=== PATIENT | female | born 1980 | race African-American/Black ===

== ENCOUNTER 2016-12-08 10:17 | Emergency (ER) | payer BC ==
--- NOTE | 2016-12-08 10:35 | ER Document Report ---
ED Medical Screen (RME) - General Chief Complaint: High Blood Pressure Stated Complaint: BLOOD PRESSURE PROBLEMS Time seen by provider: 10:33 Notes: Patient states she has been having intermittent episodes of elevated blood pressure, usually associated with a headache. Has never been on any medications or to diagnosed with high blood pressure. States she started a new job about 2 weeks ago when she's been having swelling to her feet since she started. She works 12 hour shifts, standing on her feet. Denies chest pain or shortness of breath, denies any cardiac history. States she was seen 2 days ago at [facility] in [place] for feet pain. Findings were normal. I have greeted and performed a rapid initial assessment of this patient. A comprehensive ED assessment and evaluation of the patient, analysis of test results and completion of the medical decision making process will be conducted by additional ED providers. TRAVEL OUTSIDE OF THE [place] IN LAST 30 DAYS: No - Related Data Allergies/Adverse Reactions: No Known Allergies Allergy (Verified 12/08/16 10:31) Past Medical History Neurological Medical History: Reports: Hx Migraine - Immunizations Hx Diphtheria, Pertussis, Tetanus Vaccination: Yes Physical Exam - Vital signs Vitals: Temp Pulse Resp BP Pulse Ox 97.9 F 73 16 129/80 H 98 12/08/16 10:22 12/08/16 10:22 12/08/16 10:22 12/08/16 10:22 12/08/16 10:22 - Cardiovascular Rhythm: Regular Heart sounds: Normal auscultation Course - Vital Signs Vital signs: Temp Pulse Resp BP Pulse Ox 97.9 F 73 16 129/80 H 98 12/08/16 10:22 12/08/16 10:22 12/08/16 10:22 12/08/16 10:22 12/08/16 10:22
--- NOTE | 2016-12-08 11:57 | ER Document Report ---
ED General - General Chief Complaint: High Blood Pressure Stated Complaint: BLOOD PRESSURE PROBLEMS Time seen by provider: 11:52 Mode of Arrival: Ambulatory Information source: Patient Notes: This is a pleasant 36-year-old female with a history of an elevated blood pressure in the past who presents to the emergency room with intermittent elevated blood pressure, swelling of her lower legs, pain in the feet especially after work. 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 She states when she gets off work, her feet ache and her legs swell. Medicines: None No known drug allergies Social: Cigarettes 2-3 packs a week Primary care physician: None TRAVEL OUTSIDE OF THE [place] IN LAST 30 DAYS: No - HPI Onset: Last week Onset/Duration: Gradual Quality of pain: Dull Severity: Moderate Pain Level: 2 Associated symptoms: denies: Chills, Fever, Shortness of breath Exacerbated by: Other - Standing for long periods Relieved by: Denies Similar symptoms previously: Yes Recently seen / treated by doctor: No - Related Data Allergies/Adverse Reactions: No Known Allergies Allergy (Verified 12/08/16 10:31) Past Medical History - General Information source: Patient - Social History Smoking Status: Current Every Day Smoker Cigarette use (# per day): Yes - 2-3 packs a week Chew tobacco use (# tins/day): No Frequency of alcohol use: None Drug Abuse: None Lives with: Family Family History: Hypertension Patient has suicidal ideation: No Patient has homicidal ideation: No - Medical History Medical History: Negative Neurological Medical History: Reports: Hx Migraine Renal/ Medical History: Denies: Hx Peritoneal Dialysis Surgical Hx: Negative - Immunizations Hx Diphtheria, Pertussis, Tetanus Vaccination: Yes Review of Systems - Review of Systems Constitutional: denies: Chills, Fever EENT: No symptoms reported Cardiovascular: No symptoms reported Respiratory: No symptoms reported Gastrointestinal: No symptoms reported Genitourinary: No symptoms reported Female Genitourinary: No symptoms reported Musculoskeletal: See HPI Skin: No symptoms reported Hematologic/Lymphatic: No symptoms reported Neurological/Psychological: No symptoms reported Physical Exam - Vital signs Vitals: Temp Pulse Resp BP Pulse Ox 97.9 F 73 16 129/80 H 98 12/08/16 10:22 12/08/16 10:22 12/08/16 10:22 12/08/16 10:22 12/08/16 10:22 Notes: Physical exam: GENERAL: 36-year-old female, lying in stretcher, no acute distress. Patient is morbidly obese. HEAD: Atraumatic, normocephalic. EYES: Pupils equal round and reactive to light, extraocular movements intact, sclera anicteric, conjunctiva are normal. ENT: TMs normal, nares patent, oropharynx clear without exudates. Moist mucous membranes. NECK: Normal range of motion, supple without lymphadenopathy or JVD. LUNGS: Breath sounds clear to auscultation bilaterally and equal. No wheezes rales or rhonchi. HEART: Regular rate and rhythm without murmurs, rubs or gallops. ABDOMEN: Soft, normoactive bowel sounds. No tenderness to palpation. No guarding, no rebound. No masses appreciated. EXTREMITIES: Normal range of motion, no pitting or edema. No clubbing or cyanosis. NEUROLOGICAL: Cranial nerves II through XII grossly intact. Normal speech, normal gait. PSYCH: Normal mood, normal affect. SKIN: Warm, Dry, normal turgor, no rashes or lesions noted. Course - Re-evaluation Re-evalutation: 12/08/16 11:54 Note: The patient's blood pressure is very acceptable today (129/80). Her pulse and respirations are good and her oxygen saturation is 98%. Her physical exam is essentially unremarkable. Her symptoms seem to be worse when she had the job on the assembly line because she has to stand for 12 hours at a time. The patient is overweight and this is clearly an exacerbating factor with the lower extremity pain. I've advised her to use compression socks, and comfortable sneakers with support. I've also discussed that she should probably stop smoking and that it contributes to peripheral vascular disease. [facility]. - Vital Signs Vital signs: Temp Pulse Resp BP Pulse Ox 97.9 F 73 16 129/80 H 98 12/08/16 10:22 12/08/16 10:22 12/08/16 10:22 12/08/16 10:22 12/08/16 10:22 - Laboratory Result Diagrams: 12/08/16 12:00 12/08/16 12:00 Laboratory results interpreted by me: 12/08/16 12:00 Hgb 11.6 L Hct 35.7 L MCH 26.4 L RDW 14.4 H Discharge - Discharge Clinical Impression: pre hypertension Condition: Stable Disposition: HOME, SELF-CARE Additional Instructions: Recommendations: Follow-up with the [facility]. I recommend using compression socks up above the calves which will help with the swelling. Take ibuprofen: 400 mg every 6 hours for foot pain. If he had continued foot pain, you could follow-up with a finish cleaner. Regarding Cigarette Smoking: There are multiple personal reasons to want to quit smoking These reasons can inspire you to stop smoking for good. Here are just a few reasons to quit today : Your Health and Appearance: Your chances of cancer, heart attack, stroke, cataracts and other diseases will go down. You will cough less and breath better. You will experience less respiratory infections. Your skin may look healthier, and you may look younger. Your teeth and fingernails will not be stained. Your Loved Ones: You children will be healthier (second hand smoke is dangerous to babies during , infants and children). women who breath in secondhand smoke over time are more likely to have miscarriage, have young babies from Sudden Syndrome, have babies that get sick more often. Children who breathe in secondhand smoke over time are more likely to have wheezing, more severe asthma attacks, pneumonia. There are resources to help you stop smokin. Call for Free Help: 2-754-Kxzw-Now (627 005-9429). or in slovak: 5-775- VELMA-YA (971-877-4229). 2. Sign up for free texts: SmokefreeTXT: [place] [address], answer a few questions and you'll start receiving messages. 3. Visit the CDC website: www.cdc.gov/tobacco/campaign/tips/quit-smoking/ quitting-resources.html 4. Discusse further methods with your primary care physician. Referrals: [facility] [Provider Group] - Follow up as needed (This is the number for primary care clinic) NAYELI GAUTAM DPM [ACTIVE STAFF] - Follow up as needed (This is a number for the but tightest if you have continued foot pain.)
[2016-12-08 12:31] LABS: ABSOLUTE EOSINOPHILS # (AUTO) 0.1 10^3/uL (0.0-0.6); ABSOLUTE LYMPHOCYTES (AUTO) 1.7 10^3/uL (0.5-4.7); ABSOLUTE MONOCYTES (AUTO) 0.5 10^3/uL (0.1-1.4); ABSOLUTE NEUT (AUTO) 5.4 10^3/uL (1.7-8.2); BASOPHILS % (AUTO) 0.6 % (0-2); EOSINOPHILS % (AUTO) 1.4 % (0-6); HEMATOCRIT 35.7 % (36.0-47.0); HEMOGLOBIN 11.6 g/dL (12.0-15.5); HGB HCT DIFFERENCE -0.9; LYMPHOCYTES % (AUTO) 21.4 % (13-45); MEAN CORPUSCULAR HEMOGLOBIN 26.4 pg (27.0-33.4); MEAN CORPUSCULAR HGB CONC 32.6 g/dL (32.0-36.0); MEAN CORPUSCULAR VOLUME 81 fl (80-97); MONOCYTES % (AUTO) 6.5 % (3-13); RED BLOOD COUNT 4.39 10^6/uL (3.72-5.28); RED CELL DISTRIBUTION WIDTH 14.4 % (11.5-14.0); SEGMENTED NEUTROPHILS % (AUTO) 70.1 % (42-78); WHITE BLOOD COUNT 7.7 10^3/uL (4.0-10.5)
[2016-12-08 12:51] LABS: ALANINE AMINOTRANSFERASE 27 U/L (9-52); ALKALINE PHOSPHATASE 98 U/L (38-126); ANION GAP 10 (5-19); ASPARTATE AMINO TRANSFERASE 15 U/L (14-36); BILIRUBIN,TOTAL 0.4 mg/dL (0.2-1.3); BLOOD UREA NITROGEN 12 mg/dL (7-20); CALCIUM 9.5 mg/dL (8.4-10.2); CARBON DIOXIDE 27 mmol/L (22-30); CHLORIDE 107 mmol/L (98-107); CREATININE RESULT 0.75 mg/dL (0.52-1.25); GLUCOSE 93 mg/dL (75-110); POTASSIUM 4.1 mmol/L (3.6-5.0); SODIUM 143.5 mmol/L (137-145)
[2016-12-08 14:48] VITALS: BP 128/76
== END 2016-12-08 14:56 | disposition home or self-care (01) ==
LOC: ER 10:17
DX: R03.0 Elevated blood-pressure reading, without diagnosis of hypertension (principal); F17.210 Nicotine dependence, cigarettes, uncomplicated
CPT/HCPCS: 36415; 80053; 85025; 99283

== ENCOUNTER 2017-01-17 04:05 | Emergency (ER) | payer BC ==
[2017-01-17] MEDS ORDERED: KETOROLAC TROMETHAMINE 60 MG/2 ML SDV IM ONE (04:43)
[2017-01-17] MEDS ORDERED: PROMETHAZINE HCL INJ 25 MG/1 ML VIAL IM ONE (04:43)
[2017-01-17] MEDS ORDERED: DIPHENHYDRAMINE HCL 50 MG/ML VIAL IM ONE (04:44)
[2017-01-17] MEDS ORDERED: PROMETHAZINE HCL INJ 25 MG/1 ML VIAL ONE (04:54)
--- NOTE | 2017-01-17 04:54 | ER Document Report ---
ED Headache - General Mode of Arrival: Ambulatory Information source: Patient TRAVEL OUTSIDE OF THE [place] IN LAST 30 DAYS: No - HPI Patient complains to provider of: Headache Patient reports: Frequent migraines, Hx chronic headaches Onset: Other - see HPI note Associated symptoms: Neck pain Exacerbated by: Light, Position Similar symptoms previously: Yes Recently seen / treated by doctor: No - General Chief Complaint: Headache Stated Complaint: HEADACHE,VOMITING Notes: Patient is a 36 year old female presenting to the ED for headache. Patient states she has a history of chronic headaches. Patient has seen a local neurologist who has diagnosed her with migraines. Patient states she started taking some medications that were prescribed by this neurologist but has ran out of them and has not been back in to see this physician. Patient states this headache has been causing her to vomit some. Patient's pain is located in her temples and forehead. Patient states she is getting headaches 2-3 times per week. Patient states she also has some numbness in her arms and fingers bilaterally; patient does repetitive movements at work. Patient also has some post nasal drip. Patient denies being , having facial pain, fever, or cough. Patient denies any family history of aneurysms. Patient has no known allergies. (STERLING ALCANTARA) - Related Data Allergies/Adverse Reactions: No Known Allergies Allergy (Verified 01/17/17 04:06) Past Medical History - General Information source: Patient - Social History Smoking Status: Current Every Day Smoker Frequency of alcohol use: None Drug Abuse: None Family History: Reviewed & Not Pertinent, Hypertension Patient has suicidal ideation: No Patient has homicidal ideation: No Neurological Medical History: Reports: Hx Migraine Surgical Hx: Negative - Immunizations Hx Diphtheria, Pertussis, Tetanus Vaccination: Yes Review of Systems - Review of Systems Constitutional: No symptoms reported EENT: No symptoms reported Cardiovascular: No symptoms reported Respiratory: No symptoms reported Gastrointestinal: No symptoms reported Genitourinary: No symptoms reported Female Genitourinary: No symptoms reported Musculoskeletal: No symptoms reported Skin: No symptoms reported Hematologic/Lymphatic: No symptoms reported Neurological/Psychological: See HPI, Headaches -: Yes All other systems reviewed and negative Physical Exam - Vital signs Interpretation: Normal - General General appearance: Appears well, Alert In distress: Mild - HEENT Head: Normocephalic, Atraumatic Eyes: Normal Pupils: PERRL Mucous membranes: Moist - Respiratory Respiratory status: No respiratory distress Chest status: Nontender Breath sounds: Normal Chest palpation: Normal - Cardiovascular Rhythm: Regular Heart sounds: Normal auscultation Murmur: No - Abdominal Inspection: Normal Distension: No distension Bowel sounds: Normal Tenderness: Nontender Organomegaly: No organomegaly - Back Back: Normal, Nontender - Extremities General upper extremity: Normal inspection, Normal ROM, Normal strength General lower extremity: Normal inspection, Normal ROM, Normal strength, Other - good pulses and perfusion. No: Edema - Neurological Neuro grossly intact: Yes Cognition: Normal Orientation: AAOx4 Colleen Coma Scale Eye Opening: Spontaneous Colleen Coma Scale Verbal: Oriented [place]leen Coma Scale Motor: Obeys Commands [place] Coma Scale Total: 15 Speech: Normal Sensory: Normal - Psychological Associated symptoms: Normal affect, Normal mood - Skin Skin Temperature: Warm Skin Moisture: Dry Skin Color: Normal - Vital signs Vitals: Temp Pulse Resp BP Pulse Ox 98.5 F 73 20 124/76 98 01/17/17 04:11 01/17/17 04:11 01/17/17 04:11 01/17/17 04:11 01/17/17 04:11 Course - Re-evaluation Re-evalutation: 01/17/17 06:22 Patient presents spell with chief plain a headache. She has chronic long- standing headaches which she sometimes gets 2 or 3 times a week they have been described as tension headaches in the past previous records have said that she has trigeminal neuralgia she denies currently having that. She has seen a local neurologist many years ago but has not recently seen them. This particular headache was gradual onset not the worse of her life associated with frontal throbbing no blurred vision double vision strokelike symptoms trauma neck pain stiffness fever or chills numbness tingling weakness or neurological deficits. No history of stroke blood pressure is stable no family history of aneurysm on physical examination she is well-appearing nontoxic with no acute nuchal rigidity or neurological deficits. Given Toradol Phenergan and Benadryl. Reassessed patient sleepy easily arousable headache is resolved. Going to discharge her to follow-up with Dr. Rudy smith call the office today for an appointment to be seen in 3-5 days discussed with her the fact that she is having these 2 and 3 times a week that she can be placed on a medication that she continues to control these. She's had CAT scans in the past I do not feel this is an acute aneurysm nor does she want an additional CAT scan. She verbalizes understanding of this can follow up with Dr. Rudy smith and discussed reasons for ED return sooner (LISA WALSH) - Vital Signs Vital signs: Temp Pulse Resp BP Pulse Ox 97.9 F 57 L 14 122/82 99 01/17/17 05:38 01/17/17 05:38 01/17/17 05:38 01/17/17 05:38 01/17/17 05:38 Discharge - Discharge Clinical Impression: acute cephalgia Condition: Stable Disposition: HOME, SELF-CARE Additional Instructions: Headache The physician does not feel that the headache you are experiencing has a serious underlying cause. Most headaches are due to emotional stress, with resultant muscle tension (tension headache). Occasionally, headaches are secondary to changes in the blood vessels of the scalp (vascular headache and migraine headache). Sometimes, a headache is the first symptom of another developing illness, such as a viral infection. You have no evidence of stroke, bleeding, meningitis, or other serious cause of your headache. The treatment of headaches varies with the severity and cause of the pain. Not all headaches need pain shots. In fact, there is evidence that using narcotics for headaches may make them worse in the long run. The physician will determine the therapy that's in your best interest. If you develop a fever, if the headache is different from any you've previously experienced, or if the headache progressively worsens, then call your physician at once or go to the emergency room. Forms: Return to Work Referrals: FRANCK TREVIÑO MD [ACTIVE STAFF] - Follow up in 3-5 days (All for an appointment to be seen in follow-up in 3-5 days return for increasing worsening or new symptoms) Scribe Attestation: 01/17/17 06:23 I personally performed the services described in the documentation reviewed the documentation recorded by my scribe in my presence and it accurately and completely records my words and actions (LISA WALSH) Scribe Documentation - Scribe Written by Scrberlin:: Sterling Alcantara 01/17/17 05:00 acting as scribe for :: Moncho
[2017-01-17 05:40] VITALS: BP 122/82
--- NOTE | 2017-01-17 08:31 | EKG REPORT ---
SEVERITY:- NORMAL ECG - SINUS RHYTHM : Confirmed by: Hilda Mcdermott MD 17-Jan-2017 08:30:18
== END 2017-01-17 05:41 | disposition home or self-care (01) ==
LOC: ER 04:05
DX: R51 Headache (principal); R11.10 Vomiting, unspecified; F17.200 Nicotine dependence, unspecified, uncomplicated
CPT/HCPCS: 93005; 99283; 96372; 93010; J1200; J1885; J2550

== ENCOUNTER 2017-01-25 03:48 | Emergency (ER) | payer BC ==
[2017-01-25] MEDS ORDERED: KETOROLAC TROMETHAMINE INJ/PF 30 MG/1 ML SDV IV ONE (05:07)
[2017-01-25] MEDS ORDERED: DIPHENHYDRAMINE HCL 50 MG/ML VIAL IV ONE (05:07)
[2017-01-25] MEDS ORDERED: METOCLOPRAMIDE HCL INJ/PF 10 MG/2 ML SDV IV ONE (05:07)
[2017-01-25] MEDS ORDERED: NORMAL SALINE 1000 ML 1,000 ML IV ONE (05:08)
[2017-01-25] MEDS ORDERED: METHOCARBAMOL INJ/PF 1000 MG/10 ML SDV IV ONE (05:08)
--- NOTE | 2017-01-25 05:10 | ER Document Report ---
ED Headache - General Chief Complaint: Headache Stated Complaint: HEADACHE Time seen by provider: 05:05 Notes: Patient is a 36-year-old female that comes emergency department for chief complaint of a headache, she states she has a migraine with pain started behind her right eye gradually a couple of days ago, she states that she vomited twice earlier, she also has some pain along the right side of her shoulder in the back. She denies any fever. She denies any visual changes. She denies any focal numbness or weakness. Patient denies injury, states that she gets headaches 2-3 times a week like this, states that she has been seen and had imaging by neurology in the past, states that she has not been able to follow- up with her neurology referral yet. He takes Tylenol for pain at home. She denies any other medical history. TRAVEL OUTSIDE OF THE [place] IN LAST 30 DAYS: No - Related Data Allergies/Adverse Reactions: No Known Allergies Allergy (Verified 01/17/17 04:06) Past Medical History - General Information source: Patient - Social History Smoking Status: Never Smoker Frequency of alcohol use: None Drug Abuse: None Lives with: Family Family History: Reviewed & Not Pertinent, Hypertension Patient has suicidal ideation: No Patient has homicidal ideation: No Neurological Medical History: Reports: Hx Migraine Renal/ Medical History: Denies: Hx Peritoneal Dialysis - Immunizations Hx Diphtheria, Pertussis, Tetanus Vaccination: Yes Review of Systems - Review of Systems Constitutional: No symptoms reported EENT: No symptoms reported Cardiovascular: No symptoms reported Respiratory: No symptoms reported Gastrointestinal: See HPI Genitourinary: No symptoms reported Female Genitourinary: No symptoms reported Musculoskeletal: No symptoms reported Skin: No symptoms reported Hematologic/Lymphatic: No symptoms reported Neurological/Psychological: See HPI Physical Exam - Vital signs Vitals: Temp Pulse Resp BP Pulse Ox 98.4 F 63 16 131/90 H 98 01/25/17 03:55 01/25/17 03:55 01/25/17 03:55 01/25/17 03:55 01/25/17 03:55 Interpretation: Normal - General General appearance: Alert - Patient squinting her eyes but does not appear to be in any severe distress, she is alert and awake In distress: None - HEENT Head: Normocephalic, Atraumatic Eyes: Normal Conjunctiva: Normal Extraocular movements intact: Yes Eyelashes: Normal Pupils: PERRL - Mild photophobia but equal and reactive Sinus: Normal Nasal: Normal Mouth/Lips: Normal Mucous membranes: Normal Pharynx: Normal Neck: Normal. No: Meningismus - Respiratory Respiratory status: No respiratory distress Chest status: Nontender Breath sounds: Normal. No: Decreased air movement, Wheezing Chest palpation: Normal - Cardiovascular Rhythm: Regular. No: Tachycardia Heart sounds: Normal auscultation, S1 appreciated, S2 appreciated Murmur: No - Abdominal Inspection: Normal Distension: No distension Bowel sounds: Normal Tenderness: Nontender Organomegaly: No organomegaly - Back Back: Nontender, Tender - Very mild left-sided trapezius and paracervical tenderness, normal range of motion, no nuchal rigidity, normal midline exam, normal upper and lower extremity range of motion, normal distal neurovascular exam - Extremities General upper extremity: Normal inspection, Nontender, Normal color, Normal ROM , Normal temperature General lower extremity: Normal inspection, Nontender, Normal color, Normal ROM , Normal temperature, Normal weight bearing. No: Danita's sign - Neurological Neuro grossly intact: Yes Cognition: Normal Orientation: AAOx4 [place] Coma Scale Eye Opening: Spontaneous [place] Coma Scale Verbal: Oriented Colleen Coma Scale Motor: Obeys Commands Colleen Coma Scale Total: 15 Speech: Normal Cranial nerves: Normal Cerebellar coordination: Normal Motor strength normal: LUE, RUE, LLE, RLE Additional motor exam normals: Equal nail maker Sensory: Normal - Psychological Associated symptoms: Normal affect, Normal mood - Skin Skin Temperature: Warm Skin Moisture: Dry Skin Color: Normal Course - Re-evaluation Re-evalutation: On reevaluation patient sleeping soundly, easily aroused, states she feels much better. Patient will be provided with Fioricet, patient has a follow-up with neurology are scheduled for Sunday, patient reporting that her headache is her typical migraine, very low suspicion of intracranial hemorrhage or any other acute abnormality. Discussed return precautions, patient states understanding and agreement. - Vital Signs Vital signs: Temp Pulse Resp BP Pulse Ox 98.4 F 75 18 149/85 H 98 01/25/17 03:55 01/25/17 07:04 01/25/17 07:04 01/25/17 07:04 01/25/17 03:55 Discharge - Discharge Clinical Impression: Headache Qualifiers: Headache type: unspecified Headache chronicity pattern: acute headache Intractability: not intractable Qualified Code(s): R51 - Headache Condition: Stable Disposition: HOME, SELF-CARE Additional Instructions: Your symptoms and response to treatment are consistent with a migraine. Take the medication provided if needed, follow-up with neurology on Sunday as planned for additional management. Return to the emergency department for any return or new concerning symptoms. Prescriptions: Butalb/Acetaminophen/Caffeine [Fioricet (50-325-40 mg) Tablet] 1 tab PO Q4HP PRN #30 tab PRN Reason: Forms: Return to Work
[2017-01-25 07:05] VITALS: BP 149/85
== END 2017-01-25 07:33 | disposition home or self-care (01) ==
LOC: ER 03:48
DX: R51 Headache (principal)
CPT/HCPCS: J1200; J2800; J1885; J2765; J7030

== ENCOUNTER 2017-02-12 04:29 | Emergency (ER) | payer BC ==
--- NOTE | 2017-02-12 06:06 | ER Document Report ---
ED Headache - General Mode of Arrival: Ambulatory Information source: Patient TRAVEL OUTSIDE OF THE [place] IN LAST 30 DAYS: No - HPI Patient complains to provider of: Headache Associated symptoms: Other - See above - General Chief Complaint: Headache Stated Complaint: HEADACHE Notes: Patient is a 36-year-old female who presents to emergency department with complaints of headache onset yesterday. Patient has been to this facility twice in the last month for the same complaint. Patient has followed up with Dr. Treviño and was prescribed Topamax which she reports is not helping. Patient states that Dr. Treviño has her following up with another specialist for imaging and a sleep study. Patient states that this headache is somewhat different from her previous headaches in that the pain is in the back of her head. Patient has vomited during this headache. Patient denies passing out, fever, congestion, and dental problems. (SARATH MAK) - Related Data Allergies/Adverse Reactions: No Known Allergies Allergy (Verified 01/17/17 04:06) Past Medical History - General Information source: Patient - Social History Smoking Status: Unknown if Ever Smoked Family History: Reviewed & Not Pertinent, Hypertension Patient has suicidal ideation: No Patient has homicidal ideation: No Neurological Medical History: Reports: Hx Migraine - Immunizations Hx Diphtheria, Pertussis, Tetanus Vaccination: Yes Review of Systems - Review of Systems Constitutional: denies: Fever EENT: denies: Nose congestion, Dental problem Cardiovascular: No symptoms reported Respiratory: No symptoms reported Gastrointestinal: See HPI, Vomiting Genitourinary: No symptoms reported Female Genitourinary: No symptoms reported Musculoskeletal: No symptoms reported Skin: No symptoms reported Hematologic/Lymphatic: No symptoms reported Neurological/Psychological: See HPI, Headaches. denies: Lost consciousness -: Yes All other systems reviewed and negative Physical Exam - Vital signs Interpretation: Normal - General General appearance: Appears well, Alert - HEENT Head: Normocephalic, Atraumatic Eyes: Normal Extraocular movements intact: Yes Neck: Normal - Respiratory Respiratory status: No respiratory distress - Cardiovascular Rhythm: Regular - Extremities General upper extremity: Normal inspection General lower extremity: Normal inspection - Neurological Neuro grossly intact: Yes Cognition: Normal Orientation: AAOx4 [place] Coma Scale Eye Opening: Spontaneous [place] Coma Scale Verbal: Oriented [place] Coma Scale Motor: Obeys Commands [place] Coma Scale Total: 15 Speech: Normal - Psychological Associated symptoms: Normal affect, Normal mood - Skin Skin Temperature: Warm Skin Moisture: Dry Skin Color: Normal Course - Re-evaluation Re-evalutation: 02/12/17 06:14 Patient presents emergency per chief plain a headache. Gradual onset yesterday afternoon. Exactly the same in character quality frequency and duration is previous episodes. I saw her a few weeks ago and encouraged her to follow up with her neurologist. She's also been seen and additional times since then. Her neurologist saw her in place her on a new medication which she states is not working. He has a sleep study ordered and she said some additional testing. She said that this is not the worst headache of her life not associated with fever stiff neck chest pain shortness of breath mild vomiting and photophobia no altered mental status or history of trauma. On examination she is well- appearing nontoxic GCS of 15 pupils are rectal light bilaterally no neurological deficits no nuchal rigidity. When ahead and gave her Toradol Reglan and Benadryl. She is encouraged to call her neurologist today on him no that she's been seen in the ER twice since she seen him. Attempt to try a different medication if that was not working. She verbalized having a ride home prior to given the medication. Significant improvement with medication will DC close PCP and neurology follow-up and discuss reasons for ED return sooner (LISA WALSH) - Vital Signs Vital signs: Temp Pulse Resp BP Pulse Ox 98.2 F 76 20 117/68 98 02/12/17 06:51 02/12/17 06:51 02/12/17 06:51 02/12/17 06:51 02/12/17 06:51 Discharge - Discharge Clinical Impression: acute cephalgia Condition: Stable Disposition: HOME, SELF-CARE Instructions: Use of Diphenhydramine, Headache ([facility]), Reglan ([facility]), Toradol Injection ([facility]) Additional Instructions: Headache The physician does not feel that the headache you are experiencing has a serious underlying cause. Most headaches are due to emotional stress, with resultant muscle tension (tension headache). Occasionally, headaches are secondary to changes in the blood vessels of the scalp (vascular headache and migraine headache). Sometimes, a headache is the first symptom of another developing illness, such as a viral infection. You have no evidence of stroke, bleeding, meningitis, or other serious cause of your headache. The treatment of headaches varies with the severity and cause of the pain. Not all headaches need pain shots. In fact, there is evidence that using narcotics for headaches may make them worse in the long run. The physician will determine the therapy that's in your best interest. If you develop a fever, if the headache is different from any you've previously experienced, or if the headache progressively worsens, then call your physician at once or go to the emergency room. Forms: Return to Work Referrals: FRANCK TREVIÑO MD [ACTIVE STAFF] - Follow up in 3-5 days (Please contact his office today and let him know he had to come to the emergency department schedule close follow-up in the next 3-5 days FOLLOW-up with primary care physician in 2-3 days term for increasing worsening or new symptoms) Scribe Attestation: 02/12/17 06:15 I personally performed the services described in the documentation reviewed the documentation recorded by my scribe in my presence and it accurately and completely records my words and actions (LISA WALSH) Scribe Documentation - Scribe Written by Wesley:: wesley Mena, 02/12/17, 0631 acting as scribe for :: [employer]
[2017-02-12] MEDS ORDERED: KETOROLAC TROMETHAMINE 60 MG/2 ML SDV IM ONE (06:12)
[2017-02-12] MEDS ORDERED: DIPHENHYDRAMINE HCL 50 MG/ML VIAL IM ONE (06:13)
[2017-02-12] MEDS ORDERED: METOCLOPRAMIDE HCL INJ/PF 10 MG/2 ML SDV IM ONE (06:13)
[2017-02-12 06:53] VITALS: BP 117/68
== END 2017-02-12 06:50 | disposition home or self-care (01) ==
LOC: ER 04:29
DX: R51 Headache (principal); R11.10 Vomiting, unspecified
CPT/HCPCS: 99283; 96372; J1200; J1885; J2765

== ENCOUNTER 2018-02-11 05:33 | Emergency (ER) | payer BC ==
[2018-02-11] MEDS ORDERED: LIDOCAINE 2% URO-JET 5 ML KIT MM ONE (06:33)
--- NOTE | 2018-02-11 06:40 | ER Document Report ---
ED General - General Chief Complaint: Rectal Pain Stated Complaint: RECTAL PAIN Time Seen by Provider: 02/11/18 06:25 TRAVEL OUTSIDE OF THE [place] IN LAST 30 DAYS: No - HPI Patient complains to provider of: Rectal pain Notes: Patient coming for rectal pain ongoing for the last 24 hours. Patient states that very painful to sit is a very painful to walk. Patient states hard stools over the last few days. Denies a history of hemorrhoids denies any bleeding patient denies any fevers chills nausea vomiting diarrhea resting on the right lateral come aside upon my evaluation. - Related Data Allergies/Adverse Reactions: No Known Allergies Allergy (Verified 01/17/17 04:06) Past Medical History - Social History Smoking Status: Current Every Day Smoker Family History: Reviewed & Not Pertinent, Hypertension Neurological Medical History: Reports: Hx Migraine Renal/ Medical History: Denies: Hx Peritoneal Dialysis - Immunizations Hx Diphtheria, Pertussis, Tetanus Vaccination: Yes Review of Systems - Review of Systems Constitutional: No symptoms reported EENT: No symptoms reported Cardiovascular: No symptoms reported Respiratory: No symptoms reported Gastrointestinal: denies: No symptoms reported - Rectal pain Genitourinary: No symptoms reported Female Genitourinary: No symptoms reported Musculoskeletal: No symptoms reported Skin: No symptoms reported Hematologic/Lymphatic: No symptoms reported Neurological/Psychological: No symptoms reported Physical Exam - Vital signs Interpretation: Normal - General General appearance: Appears well, Alert - HEENT Head: Normocephalic, Atraumatic Eyes: Normal Pupils: PERRL - Respiratory Respiratory status: No respiratory distress Chest status: Nontender Breath sounds: Normal Chest palpation: Normal - Cardiovascular Rhythm: Regular Heart sounds: Normal auscultation Murmur: No - Abdominal Inspection: Normal Distension: No distension Bowel sounds: Normal Tenderness: Nontender Organomegaly: No organomegaly - Rectal Tenderness: Yes Hemorrhoids: External - Small hemorrhoid at the 12 o'clock position nonthrombosed - Back Back: Normal, Nontender - Extremities General upper extremity: Normal inspection, Nontender, Normal color, Normal ROM , Normal temperature General lower extremity: Normal inspection, Nontender, Normal color, Normal ROM , Normal temperature, Normal weight bearing. No: Adnita's sign - Neurological Neuro grossly intact: Yes Cognition: Normal Orientation: AAOx4 [place] Coma Scale Eye Opening: Spontaneous [place] Coma Scale Verbal: Oriented [place] Coma Scale Motor: Obeys Commands [place] Coma Scale Total: 15 Speech: Normal Motor strength normal: LUE, RUE, LLE, RLE Sensory: Normal - Psychological Associated symptoms: Normal affect, Normal mood - Skin Skin Temperature: Warm Skin Moisture: Dry Skin Color: Normal Course - Re-evaluation Re-evalutation: 02/11/18 14:55 Patient with a nonthrombosed hemorrhoid more likely causing her pain. Patient was educated about him was started on stool softeners hemorrhoid cream and lidocaine patient discharged home Discharge - Discharge Clinical Impression: Acute hemorrhoid Condition: Good Disposition: HOME, SELF-CARE Instructions: Gastroenteritis (adult) ([facility]), HC Hemorrhoid Cream ([facility]), Hemorrhoids ([facility]), Surgeon Additional Instructions: Examination today shows that you have an acute hemorrhoid. There is no signs of thrombosis or blood clot within the hemorrhoid. Please use the prescribed creams as directed. He may also try [id number] Preparation H. Please make sure you are taking a stool softener order prescribed stool softener to prevent any constipation. Follow-up with the surgeons or GI doctors as needed also recommend following up with your primary care physician for further evaluation. Prescriptions: Docusate Sodium [Colace] 100 mg PO BID #30 capsule Hydrocortisone/Pramoxine [Analpram Hc 2.5% Cream] 30 gm RC BID #1 cream.appl Lidocaine [Recticare] 30 gm TP Q6 #1 cream..g. Forms: Return to Work
== END 2018-02-11 06:48 | disposition home or self-care (01) ==
LOC: ER 05:33
DX: K64.4 Residual hemorrhoidal skin tags (principal); K62.89 Other specified diseases of anus and rectum; I10 Essential (primary) hypertension; F17.200 Nicotine dependence, unspecified, uncomplicated
CPT/HCPCS: 99283; J3490

== ENCOUNTER 2019-07-22 04:57 | Emergency (ER) | payer BC ==
[2019-07-22 05:07] VITALS: BP 127/78
[2019-07-22] MEDS ORDERED: KETOROLAC TROMETHAMINE 60 MG/2 ML SDV IM ONE (05:59)
[2019-07-22] MEDS ORDERED: CYCLOBENZAPRINE HCL 10 MG TABLET PO ONE (05:59)
--- NOTE | 2019-07-22 07:11 | RADIOLOGY REPORT (SQ) ---
Cervical spine five view on 07/22/2019 at 6:41 AM CLINICAL INDICATION: Neck pain, pain with rotating head COMPARISON: None FINDINGS: Degenerative disc disease is noted from C4 through C6. There is slight reversal of the normal cervical lordosis. Cervical spine is otherwise well aligned. There is no. Oblique imaging shows no bony foraminal narrowing. There are no fractures. No other bony abnormality is noted. IMPRESSION: No acute abnormality.
--- NOTE | 2019-07-22 07:15 | ER Document Report ---
HPI - HPI Patient complains to provider of: neck pain Time Seen by Provider: 07/22/19 05:15 Pain Level: 4 Context: Patient is a 39-year-old female presents to the emergency department for neck pain. States she has had intermittent pain for approximately 2 weeks. States approximately 2 weeks ago she picked something up heavy at work and noticed pain in her neck. Patient voices she "heard a pop." Patient voices generalized midline cervical tenderness as well as paraspinal tenderness into bilateral trapezius muscles. Patient's denying any numbness or tingling in any extremity. She is denying any urinary retention or loss of bowel or bladder. She is denying any other injuries. Patient voices her last menstrual cycle was approximately 2 weeks ago. States there is no chance she is . - REPRODUCTIVE LMP: 06/2019 Reproductive: DENIES: : Past Medical History - General Information source: Patient - Social History Smoking Status: Current Every Day Smoker Chew tobacco use (# tins/day): No Frequency of alcohol use: Occasional Drug Abuse: None Family History: Reviewed & Not Pertinent, Hypertension Patient has suicidal ideation: No Patient has homicidal ideation: No Neurological Medical History: Reports: Hx Migraine Renal/ Medical History: Denies: Hx Peritoneal Dialysis - Immunizations Hx Diphtheria, Pertussis, Tetanus Vaccination: Yes Vertical Provider Document - CONSTITUTIONAL Agree With Documented VS: Yes Notes: GENERAL: Alert, interacts well. No acute distress. HEAD: Normocephalic, atraumatic. EYES: Pupils equal, round, and reactive to light. Extraocular movements intact. ENT: Oral mucosa moist, tongue midline. NECK: Full range of motion. Supple. Trachea midline. No nuchal rigidity noted, generalized pain noted cervical midline as well as paraspinal into bilateral trapezius muscles. LUNGS: Clear to auscultation bilaterally, no wheezes, rales, or rhonchi. No respiratory distress. HEART: Regular rate and rhythm. No murmur ABDOMEN: Soft, non-tender. Non-distended. Bowel sounds present in all 4 quadrants. EXTREMITIES: Moves all 4 extremities spontaneously. No edema, normal radial and dorsalis pedis pulses bilaterally. No cyanosis. BACK: no thoracic, lumbar midline tenderness. No saddle anesthesia, normal distal neurovascular exam. NEUROLOGICAL: Alert and oriented x3. Normal speech. cranial nerves II through XII grossly intact. PSYCH: Normal affect, normal mood. SKIN: Warm, dry, normal turgor. No rashes or lesions noted. - INFECTION CONTROL TRAVEL OUTSIDE OF THE [place] IN LAST 30 DAYS: No Course - Re-evaluation Re-evalutation: Patient presents to the emergency department with what appears to be musculoskeletal neck pain. Patient does have cervical spine tenderness so imaging was ordered. Imaging negative for acute fracture. Patient was treated with Toradol in the emergency department. She was driving so Flexeril was withheld. Patient's denying any headache, rash, fever, generalized malaise, URI symptoms. Patient has no urinary retention or loss of bowel or bladder, no numbness or tingling in any extremities. Discussed close follow-up with primary care provider with close return precautions. - Vital Signs Vital signs: Temp Pulse Resp BP Pulse Ox 98.2 F 74 16 127/78 H 98 07/22/19 04:58 07/22/19 04:58 07/22/19 04:58 07/22/19 04:58 07/22/19 04:58 Discharge - Discharge Clinical Impression: Neck pain Condition: Stable Disposition: HOME, SELF-CARE Instructions: Neck Injury (Cervical Strain) ([facility]) Additional Instructions: As we discussed you have been seen and treated in the emergency department for your generalized and neck pain. I do feel as though your neck pain is muscular in nature. Your x-rays revealed no signs of abnormalities. Please take medications as prescribed and follow-up with your primary care provider in the next 12 to 24 hours. Return to the emergency room for any concerns. Prescriptions: Cyclobenzaprine HCl [Flexeril 10 mg Tablet] 10 mg PO TIDP PRN #15 tab PRN Reason: Naproxen 500 mg PO BID #20 tablet Forms: Return to Work Referrals: NAHUM SHARMA FNP [Primary Care Provider] - Follow up as needed
== END 2019-07-22 07:32 | disposition home or self-care (01) ==
LOC: ER 04:57
DX: M54.2 Cervicalgia (principal); X50.0XXA Overexertion from strenuous movement or load, initial encounter; F17.200 Nicotine dependence, unspecified, uncomplicated
CPT/HCPCS: 99283; 96374; 72050; J1885

== ENCOUNTER 2020-07-09 23:02 | Emergency (ER) | payer BC ==
--- NOTE | 2020-07-09 23:16 | ER Document Report ---
ED Medical Screen (RME) - General Chief Complaint: Headache Stated Complaint: HEADACHE Time Seen by Provider: 07/09/20 23:12 Primary Care Provider: NAHUM SHARMA FNP [Primary Care Provider] - Follow up as needed Mode of Arrival: Ambulatory Information source: Patient Notes: 40-year-old female presents to ED for complaint of headache pain stomach upset no nausea vomiting she states that she has had headaches before and she took some that the neurologist gave her. She states she took Tylenol at 6 PM and ibuprofen at 4 PM and has had no relief. She does have a history of migraines. She does smoke 6 to 7 cigarettes a day and rarely drinks alcohol. Patient is alert oriented respirations regular nonlabored speaking in full sentences. I have greeted and performed a rapid initial assessment of this patient. A comprehensive ED assessment and evaluation of the patient, analysis of test results and completion of medical decision making process will be conducted by an additional ED providers. TRAVEL OUTSIDE OF THE [place] IN LAST 30 DAYS: No - Related Data Allergies/Adverse Reactions: No Known Allergies Allergy (Verified 07/09/20 23:12) Past Medical History - Social History Frequency of alcohol use: Rare Drug Abuse: None Neurological Medical History: Reports: Hx Migraine Renal/ Medical History: Denies: Hx Peritoneal Dialysis - Immunizations Hx Diphtheria, Pertussis, Tetanus Vaccination: Yes Physical Exam - Vital signs Vitals: Temp Pulse BP Pulse Ox 98.4 F 73 136/89 H 99 07/09/20 23:08 07/09/20 23:08 07/09/20 23:08 07/09/20 23:08 Course - Vital Signs Vital signs: Temp Pulse Resp BP Pulse Ox 98.4 F 73 136/89 H 99 07/09/20 23:08 07/09/20 23:08 07/09/20 23:08 07/09/20 23:08 Doctor's Discharge - Discharge Referrals: NAHUM SHARMA FNP [Primary Care Provider] - Follow up as needed
[2020-07-10] MEDS ORDERED: KETOROLAC TROMETHAMINE INJ/PF 30 MG/1 ML SDV IV ONE (00:38)
[2020-07-10] MEDS ORDERED: NORMAL SALINE 1000 ML 1,000 ML IV ONE (00:39)
[2020-07-10] MEDS ORDERED: DIPHENHYDRAMINE HCL 50 MG/ML VIAL IV ONE (00:39)
[2020-07-10] MEDS ORDERED: METOCLOPRAMIDE HCL INJ/PF 10 MG/2 ML SDV IV ONE (00:39)
--- NOTE | 2020-07-10 00:47 | ER Document Report ---
ED Headache - General Chief Complaint: Headache Stated Complaint: HEADACHE Time Seen by Provider: 07/09/20 23:12 Primary Care Provider: FRANCK TREVIÑO MD [NO LOCAL MD] - Follow up in 3-5 days NAHUM SHARMA FNP [NURSE PRACTITIONER] - Follow up as needed Mode of Arrival: Ambulatory TRAVEL OUTSIDE OF THE [place] IN LAST 30 DAYS: No - HPI Patient complains to provider of: "Migraine" Onset: Other - 1 week Onset was: Gradual Quality of pain: Throbbing Associated symptoms: denies: Fever Notes: Patient is a 40-year-old female with a past medical history of migraines who presents with a headache. Patient states she has had this headache all week. She has tried Tylenol and ibuprofen with minimal relief. Patient states this feels like her regular headache. She used to be on a medication for migraines but she has not seen her neurologist in a while. Patient describes it as being worse with light. She states it is throbbing. It feels like her normal headaches. Patient denies any neurological symptoms such as numbness or tingling. She has not been ill recently. No neck stiffness. - Related Data Allergies/Adverse Reactions: No Known Allergies Allergy (Verified 07/09/20 23:12) Past Medical History - General Information source: Patient - Social History Smoking Status: Current Every Day Smoker Frequency of alcohol use: Rare Drug Abuse: None Family History: Reviewed & Not Pertinent, Hypertension Patient has homicidal ideation: No Neurological Medical History: Reports: Hx Migraine Renal/ Medical History: Denies: Hx Peritoneal Dialysis - Immunizations Hx Diphtheria, Pertussis, Tetanus Vaccination: Yes Review of Systems - Review of Systems Notes: CONSTITUTIONAL: No fever, fatigue or weight loss. SKIN: No rash. HENT: No congestion, ear pain, or sore throat. EYES: No recent vision problems or eye pain. ENDOCRINE: No thyroid problems. No polyuria or polydipsia. CARDIOVASCULAR: No chest pain or edema. RESPIRATORY: No cough, shortness of breath, congestion, or wheezing. GASTROINTESTINAL: No abdominal pain, nausea, vomiting, bloody stools or diarrhea. GENITOURINARY: No dysuria. MUSCULOSKELETAL: No joint pain or swelling. LYMPHATIC: No swollen glands. NEUROLOGIC: No seizures. No focal weakness or sensory changes. Positive for headaches. HEMATOLOGIC: No unusual bruising or bleeding. PSYCHIATRIC: No depression or anxiety. Physical Exam - Vital signs Vitals: Temp Pulse BP Pulse Ox 98.4 F 73 136/89 H 99 07/09/20 23:08 07/09/20 23:08 07/09/20 23:08 07/09/20 23:08 - Notes Notes: VITAL SIGNS: Within normal limits. GENERAL: No acute distress, non-toxic appearance. HEAD: Normal with no signs of head trauma. EYES: EOMI, conjunctiva normal, no discharge. EARS: Hearing grossly intact. NOSE: Normal. NECK: Normal range of motion, no tenderness, supple, no lymphadenopathy, No adenopathy, no JVD. CHEST: Clear breath sounds bilaterally. No wheezes, rales, or rhonchi. CARDIAC: Regular rate and rhythm. S1 and S2, without murmurs, gallops, or rubs. VASCULAR: No Edema. ABDOMEN: Normal and soft with no tenderness GENITOURINARY: Normal, No tenderness LYMPATHTIC: No lymphadenopathy noted. MUSCULOSKELETAL: Good range of motion of all major joints. Extremities without clubbing, cyanosis or edema. NEUROLOGICAL: Alert and oriented x 3. No focal sensory or strength deficits. Speech normal. Follows commands appropriately. PSYCHIATRIC: Normal Affect, judgement and mood. SKIN: Normal appearance with no rashes or lesions. Course - Re-evaluation Re-evalutation: 07/10/20 00:43 Patient states this feels like her normal migraine. I do not believe she requires a CT scan of her head at this time. I will treat her with Benadryl, Reglan, Toradol and reassess. She does not appear to be in acute distress. Patient is agreeable to this plan. Patient states headache has improved. I have educated her on making sure she is drinking plenty of fluids, getting sleep, eating regular meals. Patient was given strict return precautions includ ing worsening headache, nausea, vomiting, weakness and she verbalized understanding. I will give her the number for neurology to follow-up with outpatient. 07/10/20 02:14 - Vital Signs Vital signs: Temp Pulse Resp BP Pulse Ox 98.4 F 73 136/89 H 99 07/09/20 23:08 07/09/20 23:08 07/09/20 23:08 07/09/20 23:08 Discharge - Discharge Clinical Impression: Headache Qualifiers: Headache type: unspecified Headache chronicity pattern: acute headache Intractability: not intractable Qualified Code(s): R51.9 - Headache, unspecified Disposition: HOME, SELF-CARE Instructions: Headache ([facility]) Additional Instructions: Follow-up with your family doctor or neurology. Please return to the ER for any return of headache, nausea, vomiting, vision changes, or weakness. Referrals: NAHUM SHARMA FNP [NURSE PRACTITIONER] - Follow up as needed FRANCK TREVIÑO MD [NO LOCAL MD] - Follow up in 3-5 days
[2020-07-10 02:45] VITALS: BP 128/72
== END 2020-07-10 02:43 | disposition home or self-care (01) ==
LOC: ER 23:02
DX: R51.9 Headache, unspecified (principal); F17.200 Nicotine dependence, unspecified, uncomplicated
CPT/HCPCS: 99284; 96361; 96374; 96375; 81025; J1200; J1885; J2765; J7030